=== PATIENT | female | born 1955 | race Caucasian/White ===

== ENCOUNTER 2023-10-31 09:47 | Outpatient (CLI) | payer MEDICARE | END 2023-10-31 09:48 | disposition home or self-care (01) | LOC: CSHMAMMO 09:47 | PROVIDERS: ATTEND Neurological Surgery | DX: M48.061 Spinal stenosis, lumbar region without neurogenic claudication (principal); M81.0 Age-related osteoporosis without current pathological fracture | CPT/HCPCS: 77080 ==

== ENCOUNTER 2023-10-31 14:23 | Outpatient (CLI) | payer MEDICARE | END 2023-10-31 14:24 | disposition home or self-care (01) | LOC: CSHMRI 14:23 | PROVIDERS: ATTEND Neurological Surgery | DX: M48.061 Spinal stenosis, lumbar region without neurogenic claudication (principal); M48.56XA Collapsed vertebra, not elsewhere classified, lumbar region, initial encounter for fracture; M47.816 Spondylosis without myelopathy or radiculopathy, lumbar region; M48.56XD Collapsed vertebra, not elsewhere classified, lumbar region, subsequent encounter for fracture with routine healing | CPT/HCPCS: 72148 ==